=== PATIENT | male | born 1945 | race Caucasian/White ===

== ENCOUNTER → 2017-02-18 | Outpatient (CLI) | payer OTHER, BC ==
--- NOTE | 2017-02-18 09:43 | DIAGNOSTIC IMAGING REPORT ---
RIGHT FINGER(S) MIN 2 VIEWS ROUTINE CLINICAL HISTORY: RIGHT FINGER PAIN 3RD DIGIT Right pain COMPARISON: None. 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 Mild degenerative subchondral cyst formation. No evidence of periarticular osteopenia. There is no evidence for soft tissue swelling. 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 Electronically signed by: Marco Nobles M.D. 02/18/2017 9:41 AM Dictated Date/Time: 02/18/2017 9:32 AM
== END | disposition home or self-care (01) ==
LOC: C.RAD1850 09:17
PROVIDERS: ATTEND Family Medicine
DX: M79.646 Pain in unspecified finger(s) (principal)